=== PATIENT | female | born 1990 | race Caucasian/White ===

== ENCOUNTER 2017-08-14 21:57 | Emergency (ER) | payer SELFPAY ==
--- NOTE | 2017-08-14 23:12 | EDM.PDOC ---
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 Following a positive home test, she underwent an obstetric ultrasound this past 08/12/2017, which demonstrated a single live intrauterine at 8 weeks 1 day. Her LMP was 06/16/2017. She is G3 L1 A1. She states that she has been experiencing pelvic cramps for the past few days, then around 20:30 tonight she passed a single clump of blood while going to the bathroom. She states that she has not had any vaginal bleeding since. She denies recent fever, nausea, vomiting, constipation, diarrhea, or urinary symptoms. No prior similar symptoms. Pelvic Pain Score (Numeric/FACES): 5 - Related Data Allergies Allergy/AdvReac Type Severity Reaction Status Date / Time No Known Allergies Allergy Verified 08/14/17 22:06 Home Meds: Home Meds Vit #108/Iron/FA [ One Tablet] 1 tab PO DAILY 08/14/17 [History ] Past Medical History - Past Surgical History HEENT Surgical History: Reports: Myringotomy w Tube(s) (bilateral), Tonsillectomy Social & Family History - Tobacco Use Smoking Status *Q: Former Smoker Years of Tobacco use: 5 Packs/Tins Daily: 0.2 Month Tobacco Last Used: Quit June 2017 - Alcohol Use Alcohol Use History: Yes Days Per Week of Alcohol Use: 2 Number of Drinks Per Day: 10 Total Drinks Per Week: 20 - Recreational Drug Use Recreational Drug Use: No - Living Situation & Occupation Living situation: Reports: Single, with Significant Other (Boyfriend) Occupation: Employed ([employer]) ED ROS GENERAL - Review of Systems Review Of Systems: See Below Constitutional: Reports: Chills HEENT: Reports: No Symptoms Respiratory: Reports: No Symptoms Cardiovascular: Reports: No Symptoms Endocrine: Reports: No Symptoms GI/Abdominal: Reports: No Symptoms : Reports: No Symptoms Musculoskeletal: Reports: No Symptoms Skin: Reports: No Symptoms Neurological: Reports: No Symptoms Psychiatric: Reports: No Symptoms Hematologic/Lymphatic: Reports: No Symptoms Immunologic: Reports: No Symptoms ED EXAM - Physical Exam Exam: See Below Exam Limited By: No Limitations General Appearance: Alert, WD/WN, No Apparent Distress Eye Exam: Bilateral Eye: Normal Inspection Ears: Normal External Exam, Hearing Grossly Normal Nose: Normal Inspection, No Blood Throat/Mouth: Normal Inspection, Normal Lips, Normal Voice, No Airway Compromise Head: Atraumatic, Normocephalic Neck: Normal Inspection, Full Range of Motion Respiratory/Chest: No Respiratory Distress, Lungs Clear, Normal Breath Sounds, No Accessory Muscle Use Cardiovascular: Normal Peripheral Pulses, Regular Rate, Rhythm, No Gallop, No JVD, No Murmur, No Rub GI/Abdominal Exam: Normal Bowel Sounds, Soft, No Organomegaly, No Distention, No Abnormal Bruit, No Mass, Pelvis Stable, Tender (Minimal, suprapubic area only. Nontender elsewhere.) Rectal Exam: Deferred Back Exam: Normal Inspection, Full Range of Motion, NT Extremities: Normal Inspection, Normal Range of Motion, No Pedal Edema, Normal Capillary Refill Neurological: Alert, Oriented, Normal Cognition, No Motor/Sensory Deficits Psychiatric: Normal Affect Skin Exam: Warm, Dry, Intact, Normal Color, No Rash Course - Vital Signs Last Recorded V/S: Last Vital Signs Temp 36.6 C 08/14/17 22:04 Pulse 63 08/14/17 22:04 Resp 16 08/14/17 22:04 BP 119/73 08/14/17 22:04 Pulse Ox 100 08/14/17 22:04 - Orders/Labs/Meds Labs: Laboratory Tests 08/14/17 08/14/17 Range/Units 23:25 23:30 HCG, Quant 29775.0 mIU/mL Urine Color Yellow (Yellow) Urine Appearance Clear (Clear) Urine pH 6.0 (5.0-8.0) Ur Specific [place] 1.025 (1.005-1.030) Urine Protein Negative (Negative) Urine Glucose (UA) Negative (Negative) Urine Ketones Negative (Negative) Urine Occult Blood Negative (Negative) Urine Nitrite Negative (Negative) Urine Bilirubin Negative (Negative) Urine Urobilinogen 0.2 (0.2-1.0) Ur Leukocyte Esterase Negative (Negative) Urine RBC 0-5 (0-5) /hpf Urine WBC 0-5 (0-5) /hpf Ur Epithelial Cells 0-5 (0-5) /hpf Urine Bacteria Rare (FEW) /hpf Urine Mucus Moderate H (FEW) /hpf - Re-Assessments/Exams Free Text/Narrative Re-Assessment/Exam: 08/14/17 23:09 Based on an ultrasound performed today's ago, 08/12/2017, the patient is 8 weeks 3 days gestation. She has been experiencing pelvic cramps for the past 2 days and passed a clump of blood earlier tonight, although has not had vaginal bleeding since. I am going to check a quantitative hCG, which, if significantly low, would be consistent with a spontaneous . I am also going to check a urinalysis to rule out a UTI. The patient does not have continued vaginal bleeding, and she is of early gestational age. The ultrasound performed 2 days ago confirmed an intrauterine , not an ectopic . Under the circumstances, an emergency ultrasound is not indicated. Further, heart tones would not be expected to be found until approximately 12 weeks gestation. The patient confirmed that she could follow-up with her Shellfish Manager for an outpatient ultrasound. 08/15/17 00:42 Test results discussed with the patient and her boyfriend. The patient's urinalysis is clean, and her quantitative hCG is 87,516, well within the expected range for gestational age of 15,000-200,000. I explained that this is a single point on a graft, however, and does not mean that she has not had a miscarriage. I'm recommending that she contact her Space Control Agent tomorrow, who then may recommend a repeat quantitative hCG in a few days, or perhaps an outpatient ultrasound. The patient is agreeable with this plan. Departure - Departure Time of Disposition: 00:44 Disposition: Home, Self-Care 01 Condition: Good Clinical Impression: Threatened - Discharge Information Instructions: Threatened Miscarriage Referrals: Jaylin Cortes MD [Primary Care Provider] - Forms: ED Department Discharge Additional Instructions: You were seen in the emergency room for pelvic cramps for the past few days, and the passing of a clump of blood tonight. Bleeding with is not normal, however, does not necessarily mean that you have had a miscarriage. Workup in the ER tonight included a quantitative hCG ( hormone) and a urinalysis. Your urinalysis returned clean. You do not have a urinary tract infection. Your quantitative hCG returned at 87,516, well within the expected values for an 8 week , of 15,000 200,000. This a normal number, however, does not mean that you have not had a miscarriage. We do not know if this number is on its way up or on its way down. We recommend that you contact the office of your Space Control Agent tomorrow, for further guidance. If any other problems, please do not hesitate to return to the ER.
== END 2017-08-15 00:53 | disposition home or self-care (01) ==
LOC: JD.ED 21:57
DX: O20.0 Threatened abortion (principal); Z87.891 Personal history of nicotine dependence; Z3A.08 8 weeks gestation of pregnancy
CPT/HCPCS: 36415; 81001; 84702; 99283; 99284

== ENCOUNTER 2017-09-21 04:08 | Emergency (ER) | payer SELFPAY ==
--- NOTE | 2017-09-21 04:42 | EDM.PDOC ---
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 Her quantitative hCG at the time was 87,516. The patient now presents, stating that she wound up having a miscarriage of that on 08/26/2017. She states that she followed up with her Extractor Loader And Unloader, Dr. Ramirez, within a week of her last ED visit, and she states that she had a negative test at some point after that. She states that she has not had a menstrual period since then. She states that she had vaginal spotting about one week ago, then had a positive home test about 3 days ago, then passed a golf ball sized blood clot around 02:30 this morning. At this time, she states that she is still having some spotting, but denies having any pain. She denies having a vaginal discharge, vaginal pain , or itchiness. Including the miscarriage that the patient suffered on 08/26/2017, she is Ab2. The patient states that her blood type is O-Neg. - Related Data Allergies Allergy/AdvReac Type Severity Reaction Status Date / Time No Known Allergies Allergy Verified 09/21/17 04:15 Home Meds: Home Meds . 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 History: Reports: Spontaneous (x 2) : 3 Para: 1 - Past Surgical History HEENT Surgical History: Reports: Myringotomy w Tube(s), Tonsillectomy Social & Family History - Family History Family Medical History: Noncontributory - Tobacco Use Smoking Status *Q: Former Smoker Years of Tobacco use: 5 Packs/Tins Daily: 0.2 Month Tobacco Last Used: Quit June 2017 - Alcohol Use Alcohol Use History: Yes Days Per Week of Alcohol Use: 2 Number of Drinks Per Day: 10 Total Drinks Per Week: 20 Alcohol Use Frequency: Socially - Recreational Drug Use Recreational Drug Use: No - Living Situation & Occupation Living situation: Reports: Single, with Significant Other (Boyfriend) Occupation: Employed ([employer]) ED ROS GENERAL - Review of Systems Review Of Systems: ROS reveals no pertinent complaints other than HPI. ED EXAM - Physical Exam Exam: See Below Exam Limited By: No Limitations General Appearance: Alert, WD/WN, Other (Alternates between being laughing/ giddy and tearful. + smell of alcohol.) Eye Exam: Bilateral Eye: Normal Inspection Ears: Normal External Exam, Hearing Grossly Normal Nose: Normal Inspection, No Blood Throat/Mouth: Normal Inspection, Normal Lips, Normal Voice, No Airway Compromise Head: Atraumatic, Normocephalic Neck: Normal Inspection, Full Range of Motion Respiratory/Chest: No Respiratory Distress, Lungs Clear, Normal Breath Sounds, No Accessory Muscle Use Cardiovascular: Normal Peripheral Pulses, Regular Rate, Rhythm, No Gallop, No JVD, No Murmur, No Rub GI/Abdominal Exam: Normal Bowel Sounds, Soft, Non-Tender, No Organomegaly, No Distention, No Abnormal Bruit, No Mass (Female) Exam: Normal External Exam, Normal Speculum Exam. No: Cervical Dilatation, Cervical Discharge, Products of Conception, Tissue Present in Cervix /Vagina, Vaginal Bleeding, Vaginal Discharge, Vaginal Lesions Back Exam: Normal Inspection, Full Range of Motion, NT Extremities: Normal Inspection, Normal Range of Motion, No Pedal Edema, Normal Capillary Refill Neurological: Alert, Oriented, Normal Cognition, No Motor/Sensory Deficits Psychiatric: Other (Unable to assess due to possible intoxication) Skin Exam: Warm, Dry, Intact, Normal Color, No Rash Course - Vital Signs Last Recorded V/S: Last Vital Signs Temp 36.8 C 09/21/17 04:12 Pulse 120 H 09/21/17 04:12 Resp 16 09/21/17 04:12 BP 132/94 H 09/21/17 04:12 Pulse Ox 95 09/21/17 04:12 - Orders/Labs/Meds Orders: Active Orders 24 hr Category Date Time Status ANTIBODY IDENTIFICATION [BBK] Stat Lab 09/21/17 04:51 Results PATIENT RETYPE [BBK] Stat Lab 09/21/17 04:51 Results RH IMMUNE GLOBULIN [BBK] Stat Lab 09/21/17 04:51 Results RHOGAM, [RHIG WORKUP, ] [BBK] Stat Lab 09/21/17 04:51 Results Labs: Laboratory Tests 09/21/17 09/21/17 09/21/17 Range/Units 04:51 04:51 04:51 WBC 6.38 (3.98-10.04) K/mm3 RBC 4.28 (3.98-5.22) M/mm3 Hgb 12.6 (11.2-15.7) gm/L Hct 38.0 (34.1-44.9) % MCV 88.8 (79.4-94.8) fl MCH 29.4 (25.6-32.2) pg MCHC 33.2 (32.2-35.5) g/dl RDW Std Deviation 38.1 (36.4-46.3) fL Plt Count 228 (182-369) K/mm3 MPV 10.1 (9.4-12.3) fl Neutrophils % (Manual) 70 H (40-60) % Band Neutrophils % 0 (0-10) % Lymphocytes % (Manual) 28 (20-40) % Atypical Lymphs % 0 % Monocytes % (Manual) 2 (2-10) % Eosinophils % (Manual) 0 L (0.7-5.8) % Basophils % (Manual) 0 L (0.1-1.2) Platelet Estimate Adequate Plt Morphology Comment Normal RBC Morph Comment Normal HCG, Quant 4.0 mIU/mL Blood Type A NEGATIVE Gel Antibody Screen Positive Rhogam Indicated Yes - Re-Assessments/Exams Free Text/Narrative Re-Assessment/Exam: 09/21/17 04:45 It is not clear to me that the patient had a miscarriage, then became again. The patient did not volunteer that she had a negative test following her miscarriage on 08/26/2017, and, in fact, it would be unusual that her test would be negative that quickly, as it takes some time, typically 4-6 weeks, for the hCG to fall to undetectable levels. A positive test 3 days ago could easily be residual hCG from her earlier . I have ordered a quantitative hCG and RhoGAM evaluation tonight. If her hCG is significantly elevated, it would indicate that the patient is either currently or recently , and follow-up will be necessary. If the hCG is very low, it will confirm that the patient had a miscarriage since she was last seen in this ED on 08/14/2017, but would not confirm that she had a miscarriage today. Indeed, if the patient were to have had a miscarriage on 08/26/2017, then ovulated and gotten a second time, only to have another miscarriage today, the gestational age would be so young, that there would not have been enough tissue mass to be noticeable. 09/21/17 05:28 The patient's quantitative hCG has returned very low at 4.0, more consistent with a from 3 weeks ago that a miscarriage from this morning. 09/21/17 05:45 The patient's blood type is O-Neg, but the patient states that she had a RhoGAM shot in August. As above, I don't believe that the patient had a second following her miscarriage on 08/26/2017, therefore she does not need an additional RhoGAM shot. 09/21/17 05:54 The above was explained to the patient and her friend, and the patient understands that she did not have a miscarriage this morning. The tissue that she passed was likely some retained products of conception. I'm recommending that if she continues to have cramping and spotting for a few days, that she follow-up with Dr. Ramirez, however, if the cramping and spotting stops, then no further evaluation or treatment is needed. Departure - Departure Time of Disposition: 05:54 Disposition: Home, Self-Care 01 Condition: Good Clinical Impression: Retained products of conception after miscarriage - Discharge Information Referrals: Solange Ramirez MD [Primary Care Provider] - Forms: ED Department Discharge Additional Instructions: You were seen in the emergency room for passing some clot this morning. Workup in the ER included a CBC and quantitative hCG. Your quantitative hCG returned very low at 4.0. This is consistent with a a few weeks ago, not a few days ago and is MOST LIKELY residual from your miscarriage on 08/26/2017. The tissue that you passed this morning is MOST LIKELY a retained product of conception from your earlier , not a new miscarriage. If you continue to have cramping and spotting, please follow-up with your Pin Cleaner, Dr. Ramirez, later this week. If your cramping and spotting stops , no further evaluation or treatment is necessary. It is safe to take Tylenol or ibuprofen as needed for discomfort. If any other problems, please do not hesitate to return to the ER. - My Orders Last 24 Hours: My Active Orders 09/21/17 04:51 ANTIBODY IDENTIFICATION [BBK] Stat PATIENT RETYPE [BBK] Stat RH IMMUNE GLOBULIN [BBK] Stat RHOGAM, [RHIG WORKUP, ] [BBK] Stat - Assessment/Plan Last 24 Hours: My Active Orders 09/21/17 04:51 ANTIBODY IDENTIFICATION [BBK] Stat PATIENT RETYPE [BBK] Stat RH IMMUNE GLOBULIN [BBK] Stat RHOGAM, [RHIG WORKUP, ] [BBK] Stat
[2017-09-21] MEDS ORDERED: Ibuprofen 600 MG Tab PO ONE (05:56)
== END 2017-09-21 06:07 | disposition home or self-care (01) ==
LOC: JD.ED 04:08
DX: O02.1 Missed abortion (principal); Z87.891 Personal history of nicotine dependence; Z3A.08 8 weeks gestation of pregnancy
CPT/HCPCS: 36415; 84702; 85025; 99284; A9270; 86850; 86870; 86900; 86901; 99283